=== PATIENT | male | born 1985 | race Caucasian/White ===

== ENCOUNTER 2020-12-18 05:50 | Observation (INO) ==
--- NOTE | 2020-11-26 13:45 | Anesthesiology Consultation ---
Date of Service November 26, 2020 Assessment & Plan (1) Encounter for pre-operative examination: Chart Review Chart Review: Acceptable Risk for Surgery (pending preop Covid testing and DOS PRP ) and Patient NOT seen in Pre Admission Testing -Will recheck PRP DOS to ensure K stable/improved. PCP reviewed 10/2020 and felt "normal" Per nursing assessment 11/26/2020, patient resides in [facility]. Travels to [facility] for grocery shopping. Wears PPE in public. Patient tested Covid positive 11/21/2020. At time of Covid positive test patient had loss of taste/smell, mild OLIVAS. Pt's girlfriend also tested Covid positive 11/20/20 (works as RN- had loss of taste and smell). Pt's taste/smell and SOB slowly improving. Scheduled for preop Covid testing 12/13/20= will awit results. (Pt's surgery currently scheduled 27 days from Covid positive test). Per PCP phone note 11/08/20= "All his laboratory tests including his CBC, CMP and lipase have returned normal. " History Surgery Operation Date: 12/18/20 07:30 Proposed Procedures p Robotic Laparoscopic Umbilical Hernia Recurrent - Clifton Armas MD Height/Weight Height: 5 ft 11 in Weight: 113.398 kg Allergies Allergy/AdvReac Type Severity Reaction Status Date / Time chocolate flavor Allergy Unknown "MILK Verified 11/26/20 12:44 CHOCOLATE ALLERGY" - NOSE BLEEDS peanut Allergy Unknown "PEANUT Verified 11/26/20 12:44 BUTTER" - NOSE BLEEDS DEMEROL Allergy Unknown HIVES Uncoded 11/26/20 12:44 Medications Home Medications Medication Instructions Recorded Confirmed Last Taken lisinopril 10 mg PO QAM 11/26/20 11/26/20 Unknown multivitamin 1 cap PO DAILY 11/26/20 11/26/20 Unknown multivitamin with minerals [Men's 1 tab PO DAILY 11/26/20 11/26/20 Unknown One Daily] Past Medical History Medical History History of COVID-19 TESTED + NOVEMBER 21 2020 - KYRIE JIMENEZ - LOSS OF TASTE & SMELL, WITH LONG DISTANCE WALKING MILD SOB CURRENT SYMPTOMS: TASTE & SMELL COMING BACK DAY BY DAY, IMPROVEMENT WITH SOB HTN (hypertension) Past Surgical History Surgical History History of cholecystectomy History of umbilical hernia repair X2 Social History Smoking Status: Former smoker tobacco type: cigarettes Do You Dip or Chew Tobacco: Yes (1 CAN EVERY 2 DAYS/ADVISED NPO) Smoking End Date: 3 YRS AGO Hx Alcohol Use: Yes (SOCIALLY) Alcohol type: beer and hard liquor alcohol intake frequency: a few times a week substance use type: does not use Testing Laboratory Results 11/07/20= WBC: 10.75 H/H: 15.2/47.6 PLATELETS: 269 SODIUM: 139 POTASSIUM: 5.3 (PCP reviewed and aware) CHLORIDE: 99 CO2: 29 BUN: 13 CREATININE: 1.0 GLUCOSE: 94
[2020-12-18] MEDS ORDERED: LR 15ML/HR IV SCH (06:00)
[2020-12-18] MEDS ORDERED: ceFAZolin 2000MG 2,000 MG/15 ML SYR IV SCH (06:00)
[2020-12-18 06:39] LABS: BUN Creatinine Ratio 16.3 (10-20); Creatinine Clr Calc Pharmacy 133.4 ml/min; Est GFR (African American) 112.5; Est GFR (Non-African American) 97.1
[2020-12-18] MEDS ORDERED: ROCURONIUM BROMIDE 10 MG/ML 5 ML VIAL IV ONE ×7 (07:01→10:58)
[2020-12-18] MEDS ORDERED: NEOSTIGMINE METHYLSULFATE 5 MG/5 ML SYR ONE (07:01)
[2020-12-18] MEDS ORDERED: LARYING-O-JET KIT (LTA) ONE (07:01)
[2020-12-18] MEDS ORDERED: LIDOCAINE HCL 2% 2 ML VIAL/AMP(20MG/ML) INFIL ONE (07:01)
[2020-12-18] MEDS ORDERED: GLYCOPYRROLATE 0.2 MG/ML VIAL ONE (07:01)
[2020-12-18] MEDS ORDERED: PROPOFOL IV EMULSION 10 MG/ML 20 ML VIAL IV ONE (07:01)
[2020-12-18] MEDS ORDERED: DEXAMETHASONE SOD INJ 4 MG/ML VIAL ONE (07:01)
[2020-12-18] MEDS ORDERED: ONDANSETRON INJ 2 MG/ML 2 ML VIAL ONE (07:01)
[2020-12-18] MEDS ORDERED: MIDAZOLAM HCL 1 MG/ML 2ML VIAL ONE (07:02)
[2020-12-18] MEDS ORDERED: fentaNYL citrate 100 MCG/2 ML VIAL ONE ×2 (07:02→08:39)
[2020-12-18] MEDS ORDERED: BUPIVACAINE 0.5 % 5 MG/1 ML MPF 30ML VIAL ONE (07:04)
[2020-12-18] MEDS ORDERED: KETOROLAC 30 MG/ML VIAL IV PRN (07:09)
[2020-12-18] MEDS ORDERED: ONDANSETRON INJ 2 MG/ML 2 ML VIAL IV PRN ×2 (07:09→13:43)
[2020-12-18] MEDS ORDERED: LABETALOL HCL IV 5 MG/ML 20ML IV PRN (07:09)
[2020-12-18] MEDS ORDERED: ATROPINE SULFATE 0.1 MG/ML 10ML SYR IV PRN (07:09)
--- NOTE | 2020-12-18 07:14 | History & Physical Bridge Note ---
Date of Service December 18, 2020 History & Physical Bridge Note I have examined the patient, reviewed the History & Physical and in the interval since the performance of the History & Physical I have noted the following changes of clinical significance: no changes noted
[2020-12-18] MEDS ORDERED: HYDROmorphone INJ 2 MG/ML SYR/VIAL ONE (10:56)
[2020-12-18] MEDS ORDERED: ceFAZolin 2000MG 2,000 MG/15 ML SYR IV ONE (11:47)
--- NOTE | 2020-12-18 11:48 | Post Operative Brief Note ---
Immediate Post Op Note v1 Date of Surgery December 18, 2020 Pre & Post Diagnosis Operation Date: 12/18/20 07:30 Pre-Op Diagnosis: Recurrent Umbilical Hernia Post-Op Diagnosis: Recurrent Umbilical Hernia I identified the patient and participated in the time-out.: Yes Procedure Operation Date: 12/18/20 07:30 Actual Procedures p Robotic Assisted Laparoscopic Umbilical Hernia Repair with Mesh, Explantation of Old Mesh, Lysis of Adhesions (Not Applicable) - Clifton Armas MD Surgeon Clifton Armas MD Levers Lace Machine Operator None Estimated Blood Loss 10 Findings Consistent with Post-Op Diagnosis Drains Sanders Catheter (Sanders 14 Fr placed prior to procedure. Sanders removed at end. Urine clear yellow. Output= )
[2020-12-18] MEDS: fentaNYL citrate 100 MCG/2 ML VIAL IV PRN ×2 (12:10→12:18)
[2020-12-18] MEDS ORDERED: D5W AND NSS 1,000 ML IV SCH (13:43)
[2020-12-18] MEDS: oxyCODONE/ACETAMINOPHEN 5mg/325mg TAB PO PRN ×3 (14:07→22:09)
--- NOTE | 2020-12-18 14:11 | Anesthesiology Progress Note ---
Date of Service December 18, 2020 Anesthesia Post Procedure Vital Signs Vital Signs: Temp Pulse Pulse Resp BP BP Pulse Ox 12/18/20 13:58 36.6 C 89 16 154/86 H 92 12/18/20 13:20 89 13 163/82 H 96 12/18/20 13:05 96 H 16 154/96 H 96 12/18/20 12:50 85 16 158/97 H 95 12/18/20 12:40 76 16 150/66 H 94 12/18/20 12:30 37 C 81 14 147/91 H 94 12/18/20 12:20 82 14 172/86 H 94 12/18/20 12:10 83 14 146/95 H 95 12/18/20 12:00 93 H 22 149/99 H 95 12/18/20 11:58 36.7 C 90 17 155/83 H 96 12/18/20 06:20 36.9 C 77 18 150/82 H 97 Pain Intensity Abdomen: Pain Intensity: 7 Right Shoulder: Pain Intensity: 7 Transfer of Care Handoff Completed per policy Notes Mental Status: alert / awake / arousable Patient Amnestic to Procedure: Yes Nausea / Vomiting: adequately controlled Pain: adequately controlled Airway Patency, RR, SpO2: stable & adequate BP & HR: stable & adequate Hydration State: stable & adequate Anesthetic Complications: no major complications apparent
[2020-12-18] MEDS: MoRPHine SULFATE 4 MG/ML 1 ML CARP\\VIAL IV PRN ×2 (15:24→23:55)
[2020-12-18] MEDS ORDERED: ACETAMINOPHEN 325 MG TAB PO PRN (17:57)
--- NOTE | 2020-12-18 19:04 | Operative Report (OR) ---
DATE OF OPERATION: 12/18/2020 PREOPERATIVE DIAGNOSIS: Recurrent umbilical hernia. POSTOPERATIVE DIAGNOSIS: Recurrent umbilical hernia. PROCEDURE: Laparoscopic robotic-assisted repair of recurrent umbilical hernia with extensive lysis of adhesions and removal of part of previous mesh. SURGEON: Clifton Armas MD. FINDINGS: The patient had a previous laparoscopic repair of an umbilical hernia. The mesh was present as were the spiral tacks. There was a dense adhesion of the small bowel to the anterior abdominal wall and to the mesh. One area of the mesh had folded back on itself exposing the peritoneal side of the mesh and there was dense adhesion of small bowel to that. There were also omental adhesion there. The umbilical hernia was then identified and was found at the inferior edge of the mesh. The mesh that had been folded back, I had to remove. I tried to flatten it; however, that was not possible. There was omentum and a small loop of small bowel within the hernia sac as well. There were no other defects identified. TECHNIQUE: The patient was given a general anesthetic and the area was prepped and draped in the usual sterile fashion. A site 16 cm lateral to and just above the umbilicus was measured. The skin there was anesthetized with 1% Xylocaine. Skin incision was made, carried down through the subcutaneous tissue to the fascia. I opened the fascia and then split the muscle and then worked deeply; however, at that point, could not identify the peritoneum with confidence. I decided to then use a Veress needle. I made a small stab incision in the left upper quadrant and placed a Veress needle. It went in with ease and there was drainage of saline from the needle. The abdomen was then insufflated to a pressure of 15 mmHg with carbon dioxide. I then was able to place first a 12 mm introducer and then the 12 mm Nova. I then measured sites superior and inferior to that more center incision at 8-9 cm. I could not easily, easily visualize the areas where I wanted to place the introducers and for that reason, I made a separate incision in the right upper quadrant, which was free of adhesion and I placed the 5 mm introducer and passed a 5 mm camera. That allowed me to confirm that there were no adhesions at the site of the Veress needle placement and at the site of placement of the Nova trocar. I then was able to easily visualize the sites where I wanted to place the other 8 mm robotic introducers and those were placed under direct vision. I left that [address] I then brought the robot to the table and docked the camera trocar. Targeting was performed. The other 2 ports were docked. The instruments were then placed under direct vision. I then attended the console. The initial adhesions towards the left side were omental adhesions. I was able to dissect those carefully working from left to right. I then encountered small bowel adhesions to the anterior abdominal wall into the mesh. These were fairly dense. I placed upward traction on the mesh and realized where the mesh had folded backwards. I then dissected the small bowel off the mesh and in one place took some of the mesh and peritoneum with the small bowel. This dissection worked superior to inferior at first and was done millimeter by millimeter. There were no serosal openings created. That dissection was done carefully until the initial loop of bowel was freed. It was allowed to fall back into its anatomic position. I could then identify the edges of the mesh inferiorly and the hernia defect. I then placed inward traction on omentum that was within the hernia sac. The majority of that reduced easily. There was some adhesion to the inside of the sac that had to be divided. There was a small amount of small bowel within the sac that was able to be reduced. There was only minimal adhesion there and those were flimsy and those were able to be easily divided with sharp dissection. That exposed the entire area of the hernia defect, which measured about 1.5 cm. I then had to deal with the mesh itself. I could not flatten the area that had worked back on itself and so for that reason, I excised that piece of mesh and brought that out through the 12 mm Nova. The camera was then passed back through there and I tacked the remaining edges of that mesh to the anterior abdominal wall using a running 2-0 absorbable V-Loc. I then turned my attention to the umbilical hernia. The hernia defect was closed incorporating some of the sac and making sure not to keyhole the skin using a nonabsorbable 0 V-Loc. The closure was felt to be adequate. I then attended the table after scrubbing. I made a small yaneli in the umbilical skin, through which I passed the suture passer. A 10 cm barrier mesh was passed into the abdomen and the central suture was grasped with a suture passer. The suture was brought out through the skin, which abutted the mesh against the abdominal wall. The mesh was then secured to the abdominal wall to the left inferiorly and to the right and to the previous mesh using a running absorbable 2-0 V-Loc. The mesh was felt to be in good position. The areas of dissection were inspected and there was no bleeding. The robot was undocked. That was performed after the instruments had been removed under direct vision. The gas was allowed to escape and the introducers were removed. The fascia of the center introducer site was closed with interrupted 0 Vicryl and the skin of all the incisions was closed with 4-0 Monocryl in either an interrupted or a running subcuticular fashion. The skin was further anesthetized with the same local. The estimated blood loss was 10 mL. Sponge, needle and instrument counts were correct x2 prior to closure. The patient tolerated the surgical procedure without complication and was transferred to recovery. I attest to the content of the Intraoperative Record and any orders documented therein. Any exception s are noted below.
[2020-12-19] MEDS: MoRPHine SULFATE 4 MG/ML 1 ML CARP\\VIAL IV PRN (04:03)
[2020-12-19] MEDS: oxyCODONE/ACETAMINOPHEN 5mg/325mg TAB PO PRN ×2 (07:28→14:04)
[2020-12-19] MEDS ORDERED: lisinopril 10 MG TAB PO SCH (09:00)
[2020-12-19] MEDS ORDERED: IBUPROFEN 600 MG TAB PO PRN (09:03)
--- NOTE | 2020-12-19 09:10 | Surgery Progress Note ---
Date of Service December 19, 2020 Assessment & Plan (1) Recurrent incisional hernia: POD # 1 s/p robotic assisted incisional hernia repair with mesh -avss - postop pain controlled - no n/v Plan: Okay for discharge this afternoon encouraged ambulating hallway Will add Ibuprofen as needed for pain discharge instructions reviewed Rx for Percocet sent to pharmacy follow-up surgery office as scheduled Admission and Anticipated Discharge Date Admission Date: December 18, 2020 Subjective feeling okay, pain moderate but controlled with Percocet no n/v tolerated reg diet no chest pain / sob urinating without difficulty has not ambulated hallway Physical Exam Constitutional: WD/WN, vitals as above Respiratory: normal respiratory effort; no respiratory distress and no labored breathing Gastrointestinal (Abdomen): Inspection/Auscultation: abdomen normal to inspection and + abdominal surgical incision (covered with dry dressings); abdomen not distended Percussion/Palpation: + abdomen tender (at incision sites) and abdomen soft; no guarding and abdomen not rigid Skin: no rashes, warm and dry Psychiatric: A+Ox3, euthymic affect Results & Data ([facility]) Vital Signs (Past 12 Hours) Vital Signs Temp Pulse Resp BP Pulse Ox 12/19/20 07:39 36.9 C 66 16 131/78 94 12/19/20 03:42 36.8 C 61 18 131/72 97 12/18/20 23:24 36.6 C 71 18 156/92 H 98
--- NOTE | 2020-12-20 17:55 | Discharge Summary ---
Date of Service December 20, 2020 Admission HPI Per Admitting Provider HPI: Luis Miguel Bajwa is being seen for an updated history and physical related to his recurrent umbilical hernia. I first saw him on 10/23/2020 and HPI for that visit stated the following: "HPI: Luis Miguel Spain is referred by Napoleon Lindo DO for evaluation of an umbilical hernia. Patient states that he underwent umbilical hernia back in 2007. Shortly thereafter recurred and he had a second repair: Shortly after that he noticed another bulge. During the first procedure was told that there were 6 defects. The patient stated that mesh was used for each of these repairs. He has occasional discomfort in the area of the bulge. It is not increased size. The pain is very mild and the ache-like discomfort. There is no sharp pain. It is right over the umbilicus. There is no pain that radiates out to the rest of the abdomen. He has no associated nausea or vomiting. He has not had a change in his bowel habits. He denies fever and chills. He has had no urinary symptoms: Since that time there are no changes other than as described above Admission Exam Per Admitting Provider Pulse 74, temperature 35.9 C tympanic height 1.803 m (5 feet 11 inches) weight 117 kg (259 pounds) SpO2 99% BMI 36.12 kg/m BSA 2.43m General: Alert and no distress Head normocephalic, no masses, lesions, tenderness or abnormalities Neck supple, no adenopathy Heart regular rate and rhythm no gallops Lungs chest symmetric with normal AP diameter, no chest deformities were noted, no chest wall tenderness, lungs clear to auscultation Abdomen: Abdomen soft, nontender, normal bowel sounds, no masses organomegaly and the umbilical hernia is easily reduced, the fascial defect is about 1 cm in size. It is not tender Back: Back symmetric, no curvature, no costovertebral angle tenderness, range of motion is normal Principal Diagnosis Recurrent umbilical hernia. Discharge Exam feeling okay, pain moderate but controlled with Percocet no n/v tolerated reg diet no chest pain / sob urinating without difficulty has not ambulated hallway Discharge Data Allergies Allergy/AdvReac Type Severity Reaction Status Date / Time meperidine Allergy Unknown Hives Verified 12/18/20 12:15 chocolate flavor AdvReac Unknown "MILK Verified 12/18/20 12:15 CHOCOLATE ALLERGY" - NOSE BLEEDS peanut AdvReac Unknown "PEANUT Verified 12/18/20 12:15 BUTTER" - NOSE BLEEDS Procedures Performed Operation Date: 12/18/20 07:30 Actual Procedures p Robotic Assisted Laparoscopic Umbilical Hernia Repair with Mesh, Explantation of Old Mesh, Lysis of Adhesions (Not Applicable) - Clifton Armas MD Hospital Course (1) Recurrent incisional hernia: This patient was taken to the operating room and underwent a laparoscopic robotic repair of recurrent umbilical hernia. The defect measured approximately 1.5 x 2 cm. It was located at the inferior edge of the previously placed mesh which had doubled back on itself on the upper lateral side. The portion of the mesh was removed. Prior to being able to do that there had to be extensive lysis of adhesions due to severe adhesion especially of the small bowel. That dissection was very intricate due to the significant adhesion of small bowel. No enterotomies or serosal openings were created. A postoperative day #1 he is having the usual amount of discomfort which was controlled with Percocet. He tolerated regular diet. He had no nausea or vomiting. Total Time Total Time Spent Total Time Spent (In Minutes): 20 Discharge Plan Discharge Items Patient Disposition: Home - Self-Care Reason For Visit: Recurrent Umbilical Hernia Discharge Diagnosis: Recurrent umbilical hernia Activity: Per Instructions section Non-emergency contact: Surgeon Call non-emergency contact if: you have any medication questions, your pain is not controlled, your pain is worsening, your pain is concerning for you, you have a fever, your temperature is above 101, your wound has increased redness, your wound has increased drainage and your wound pain has increased Follow-up/Referrals: Napoleon Lindo MD [Primary Care Provider] - Diet: Regular Addtl Attending Provider Instructions: Post-Surgical ~Discharge Instructions Activity Recommendations: - lifting limitation: (10 pounds for 6 weeks), - exercise/sex/sports limit: (nonstrenuous for 6 weeks), - driving or machine use limit: (none for 1 week), - Shower/bathe limit: (may shower tonight) Diet: - Resume previous diet SPECIAL CARE INSTRUCTIONS: - May shower tonight. Let water run over area and pat dry. - Leave steri strips on for one week and then remove. - Call the surgeon's office with any questions or concerns - - (ex. temperature higher than 101 degrees F, excessive bleeding or pain). MEDICATIONS: - Resume previous medications unless instructed otherwise by your surgeon. - May alternate extra strength Tylenol and Ibuprofen as needed for mild pain -650 mg of Tylenol every 6 hours as needed - Ibuprofen 600 mg every 6 hours as needed (take with food) - Percocet 1 every 4 hours, as needed for moderate to severe pain. FOLLOW UP VISIT: - If not already scheduled, please call the office to schedule a two week follow-up appointment. Office number Pending Studies at Discharge: No Stand-Alone Forms: My [facility] [employer], Smoking Cessation Medications and DC Order Prescriptions: New oxycodone-acetaminophen [Percocet] 5-325 mg tablet 1 tab PO Q4H PRN (Reason: pain) Qty: 18 RF: 0 Continued lisinopril 10 mg Tablet 10 mg PO QAM RF: 0 multivitamin with minerals [Men's One Daily] Tablet 1 tab PO DAILY RF: 0 omeprazole 10 mg Capsule,Delayed Release(Dr/Ec) 10 mg PO DAILY RF: 0 Discharge Orders: Discharge Order (Routine); Ordered 12/19/20 Ordered By: Skye Rascon/Other Patient Handouts: DVT Post Op Prevention Admission Data Admit Date/Time: 12/18/20 11:55 Attending Provider: Clifton Armas Admit Provider: Clifton Armas Primary Care Provider: Napoleon Lindo Other Interventions: Discharge Summary Assessment (RN) Last Done: 12/19/20 11:45
== END 2020-12-19 14:31 | disposition home or self-care (01) ==
LOC: 3N 05:50 → ASU 05:50